=== PATIENT | female | born 2000 | race Two or more races ===

== ENCOUNTER 2022-10-27 07:00 | Inpatient (IN) | payer OTHER, SELFPAY ==
--- NOTE | ~2022-10-27 | MR_ITS ---
EXAMINATION: MR MRCP wo/w con/w 3D wo ind DATE: 10/29/2022 10:31 INDICATION: Cholecystitis. Elevated bilirubin. TECHNIQUE: Magnetic resonance imaging (MRI) of the abdomen was performed without and with 20 mL Multi eugenio intravenous contrast. Sequences included coronal T2-weighted SS-FSE, coronal T2-weighted FS SS- FSE, coronal T2-weighted FS FIESTA, axial T2-weighted FS FIESTA, axial T2-weighted FIESTA, sagittal T 2-weighted SS-FSE, axial T1-weighted dual-echo FSPGR, axial T2-weighted SS-FSE, axial T1-weighted LAV A, axial T2-weighted STIR FSE. Thick-slab T2-weighted FRFSE-XL images were obtained for magnetic reso nance cholangiopancreatography (MRCP). Rotating maximum intensity projection 3-D reconstructions of t he volumetric data were created by the technologist. Postcontrast sequences included a time course of axial T1-weighted LAVA. COMPARISON: CT and ultrasound dated 10/27/2022 FINDINGS: ABDOMEN MRI: Heart size is normal. No pericardial effusion. Trace bilateral pleural effusions. There is a single o void 2.1 cm gallstone at the junction of the body and neck of the gallbladder which does not appear d ilated. The previously seen gallbladder wall thickening appears to have resolved. There is no pericho lecystic fluid or edema/stranding in the pericholecystic fat to suggest acute cholecystitis. Liver, s pleen, pancreas, bilateral adrenal glands and kidneys are normal. Retroaortic left renal vein. Visual ized portions of bowels are unremarkable with no obstruction. No pathologically enlarged abdominal ly mphadenopathy. Visualized portion the dome of the bladder is unremarkable. Normal bone marrow signal throughout. ABDOMEN MRCP: No intra or extrahepatic biliary ductal dilation. The common bile duct measures up to 4 mm in maximal diameter which is within normal limits and tapers smoothly distally with no evident st rictures or choledocholithiasis. IMPRESSION: 1. Single large gallstone within the now otherwise normal-appearing gallbladder with resolution of th e previously seen mild gallbladder wall thickening. No intra or extrahepatic biliary ductal dilation or choledocholithiasis. Reviewed, dictated and finalized at location A. IMPRESSION: 1. Single large gallstone within the now otherwise normal-appearing gallbladder with resolution of the previously seen mild gallbladder wall thickening. No in tra or extrahepatic biliary ductal dilation or choledocholithiasis.
--- NOTE | ~2022-10-27 | CT_ITS ---
EXAMINATION: CT abdomen pelvis w con DATE: 10/27/2022 10:15 INDICATION: Epigastric abdominal pain. TECHNIQUE: Computed tomography (CT) of the abdomen and pelvis was performed with 100 mL Omnipaque 350 intravenous contrast. Automated exposure control and iterative reconstruction technique were employe d. The dose-length product was 1549.25 mGy-cm. COMPARISON: None. FINDINGS: The visualized portions of the lung bases demonstrate minimal atelectasis. No pleural effus ion. The heart size is normal. No pericardial effusion. The gallbladder is normal in size. There is a gallstone in the gallbladder neck. Gallbladder wall thickening is noted. The spleen, pancreas, adren al glands, and kidneys are normal. There are no dilated loops of bowel. The appendix is normal. There are no pathologically enlarged lymph nodes. There is no free intraperitoneal fluid. There is mild th oracic spondylosis. IMPRESSION: 1. Acute cholecystitis. Reviewed, dictated and finalized at location A. IMPRESSION: 1. Acute cholecystitis.
--- NOTE | ~2022-10-27 | US_ITS ---
EXAMINATION: US abdomen limited DATE: 10/27/2022 12:36 INDICATION: Right upper quadrant abdominal pain. TECHNIQUE: Multiple grayscale and Doppler ultrasound images of the abdomen were obtained. COMPARISON: CT abdomen and pelvis 10/27/2022 FINDINGS: The pancreas is obscured by bowel gas. The liver is normal without focal lesion. There is n ormal flow in main portal vein. The gallbladder is normal in size and contains a gallstone in the gal lbladder neck. Gallbladder wall thickening is noted. There is no sonographic Velez sign. The common duct is normal and measures 2 mm. IMPRESSION: 1. Gallstone in the gallbladder neck and gallbladder wall thickening suspicious for acute cholecystit is. Reviewed, dictated and finalized at location A. IMPRESSION: 1. Gallstone in the gallbladder neck and gallbladder wall thickening suspicious for acute cholecystitis.
[2022-10-27 07:03] VITALS: BP 132/66; PULSE 84; RESP 15; TEMP 36.3; O2SAT 100
[2022-10-27 07:33] LABS: Basophils Percent Auto 0.2 % (0.2-1.2); Eosinophils Percent Auto 0.4 % (0-4.4); Hematocrit 38.6 % (37.0-47.0); Hemoglobin 12.6 g/dL (12.0-15.0); Immature Granulocyte Absolute 0.05 K/mm3 (0.00-0.031); Immature Granulocyte Percent A 0.5 % (0-0.5); Lymphocytes Absolute Auto 2.39 K/mm3 (0.9-3.2); Lymphocytes Percent Auto 22.9 % (18.3-44.2); Mean Corpuscular HGB Conc 32.6 g/dl (32-36); Mean Corpuscular Hemoglobin 25.6 pg (26-34); Mean Corpuscular Volume 78.5 fl (80-100); Mean Platelet Volume 9.5 fl (7.4-10.4); Monocytes Absolute Auto 0.8 K/mm3 (0.1-0.6); Monocytes Percent Auto 7.9 % (2.6-8.5); Neutrophils Absolute Auto 7.1 K/mm3 (1.3-6.7); Neutrophils Percent Auto 68.1 % (45.5-73.1); Platelet Count Result 371 k/mm3 (150-375); Red Blood Count 4.92 M/mm3 (4.2-5.4); Red Cell Distribution Width 17.8 % (11.5-14.5); White Blood Count 10.4 K/mm3 (4.5-10.0)
--- NOTE | 2022-10-27 07:39 | ED.ABDPAIN ---
HPI - Abdominal Pain General Chief Complaint: Abdominal Pain Stated Complaint: abdominal/chest pain Time Seen by Provider: 10/27/22 07:23 History of Present Illness HPI narrative: This is a 22-year-old female, who denies significant past medical history, presenting to the emergency department complaining of abdominal pain beginning yesterday evening. The patient states last night she noted substernal chest pain, described as sharp and burning that migrated to the epigastric region. It is rated 7/10 and is persistent. She states is aggravated by motion, eating and direct pressure. She admits vomiting 3-4 times without blood and has some nausea. She states she has had a pain like this before but this is lasting longer than usual. Related Data Home Medications Medication Instructions Recorded Confirmed dextroamphetamine-amphetamine 30 30 mg PO DAILY 10/27/22 10/27/22 mg tablet (Adderall) escitalopram oxalate 10 mg tablet 5 mg PO DAILY 10/27/22 10/27/22 (Lexapro) norethindrone 1 mg-ethinyl 1 tablet PO DAILY 10/27/22 10/27/22 estradiol 20 mcg (21)-iron 75 mg (7) tablet (04/28 (28)) Allergies Allergy/AdvReac Type Severity Reaction Status Date / Time No Known Allergies Allergy Verified 10/27/22 15:03 Review of Systems Review of Systems: CONSTITUTIONAL: Denies fever, chills, or sweats. CARDIOVASCULAR: Denies chest pain, palpitations, or edema. RESPIRATORY: Denies cough or dyspnea. GASTROINTESTINAL: Epigastric abdominal pain, nausea and vomiting denies diarrhea. GENITOURINARY: Denies dysuria or hematuria. Last menstrual period approximately 3 weeks ago SKIN: Denies rash or itching. MUSCULOSKELETAL: Denies back pain, joint pain, or myalgia. NEUROLOGIC: Denies headache, numbness, dizziness, or weakness. PSYCHIATRIC: Denies anxiety or depression. [facility] Past Medical History Medical History (Updated 10/27/22 @ 16:38 by Josh Patel MD) ADHD Anxiety Depression Eczema History of transfusion As an . Surgical History Surgical History (Updated 10/27/22 @ 15:03 by Hayley Morrell) No significant past surgical history Family History Family History (System 10/27/22 @ 15:03 by Hayley Morrell) Grandparent Breast cancer Grandparent Myocardial infarction due to acute myocardial infarction Other Diabetes mellitus Autism Social History Social History (System 10/27/22 @ 15:03 by Hayley Morrell) Smoking status: Never smoker Second hand tobacco smoke exposure: Yes Alcohol intake: never Substance use: current Substance use type: marijuana Other substance usage details: substance use only when with boyfriend when using THC vape. Lack of Transportation: No Lack of Food: Never True Current Housing: I Have Housing Concerned About Future Housing: No Difficulty Paying Gas/Electric Bills: No Difficulty Paying for Meds: No Currently Unemployed: No Education: Trade/Vocational Certificate Difficulty w/ Childcare or Family Care: No Living arrangements: with family Occupation/Education: occupation Gender identity (if verbalized by the patient): Female Spiritual care concerns: No Agree to blood products: Yes Exam Narrative: GENERAL: Well-developed, well-nourished, and in no acute distress. HEAD: Normocephalic, atraumatic. EYES: PERRLA and EOMI. ENT: Nares clear, no rhinorrhea or epistaxis. Mucous membranes moist. Oropharynx without tonsillar hypertrophy exudate or other lesions. CHEST: Clear to auscultation. No respiratory distress. No wheezes rales or rhonchi HEART: Regular rate and rhythm. No murmur heard. Normal peripheral pulses. ABDOMEN: Soft, mildly tender in the epigastrium and right upper quadrant without guarding or rebound, nondistended, normal active bowel sounds. Mild right CVA tenderness to palpation, no left CVA tenderness EXTREMITIES: Normal range of motion. No edema. SKIN: Warm, dry, no rash. NEURO: No focal defic
[2022-10-27 07:43] LABS: Alanine Aminotransferase 56 U/L (6-35); Alkaline Phosphatase 89 U/L (38-126); Anion Gap 9 mmol/L (8-16); Aspartate Amino Transferase 53 U/L (14-36); Bilirubin,Total 1.4 mg/dL (0.2-1.3); Blood Urea Nitrogen 13 mg/dL (7-17); Calcium 9.5 mg/dL (8.4-10.2); Carbon Dioxide 24 mmol/L (22-30); Chloride 106 mmol/L (98-107); Estimated CRCL calculation 131 ml/min; Estimated Glomerular Filt Rate > 60; Glucose 106 mg/dL (65-110); Lipase 114 U/L (23-300); Potassium 3.9 mmol/L (3.4-5.0); Sodium 139 mmol/L (137-145)
[2022-10-27] MEDS: BELLADONNA ALK/PHENOB ELIX 10 ML, MAG HYDROX/ALUMINUM HYD/SIMETH 30 ML, LIDOCAINE HCL 2... PO (07:56)
[2022-10-27] MEDS: MORPHINE SULFATE (*CRX) 4 MG/ML INJ IV PUSH ×3 (07:56→15:55)
--- NOTE | 2022-10-27 07:56 | PC.NURSE ---
2 liters NS infusing. Morphine 4 mg given IVP for abd pain 08/16. Zofran 4 mg IVP given. GI cocktail given.
[2022-10-27] MEDS: ONDANSETRON INJ 4 MG/2 ML VIAL IV PUSH ×2 (08:08→15:55)
[2022-10-27] MEDS: SODIUM CHLORIDE 0.9% IV 2,000 ML 999 ML IV CONT (08:09)
[2022-10-27 09:22] LABS: Appearance Urine Clear (Clear); Bilirubin Urine Negative (Negative); Blood Urine Negative (Negative); Color Urine Yellow (Yellow); Glucose Urine UA Negative (Negative); Ketones Urine Negative (Negative); Leukocyte Esterase Ur Negative LEU/UL (Negative); Nitrate Urine Negative (Negative); Protein Urine Negative (Negative); Specific Grav Ur 1.011 (1.001-1.035); pH Urine 7.5 (5.0-9.0)
[2022-10-27 09:32] LABS: Add Urine Microscopic? NO
[2022-10-27 09:56] LABS: Beta HCG Quantitative < 2.39 mIU/ML
[2022-10-27 10:38] VITALS: BP 126/72; PULSE 84; RESP 16; O2SAT 100
--- NOTE | 2022-10-27 10:39 | PC.NURSE ---
Reports increasing pain to left upper abd. ERP aware.
[2022-10-27] MEDS: PIPERACILLN/TAZ 3.375GM/NS50ML 3.375 GM/50 ML BAG IVPB (11:10)
--- NOTE | 2022-10-27 12:25 | PM.IMHP ---
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 She presented to the emergency room this morning complaining of severe epigastric and right upper quadrant abdominal pain associated with nausea and vomiting. In the emergency room she was hemodynamically stable. White blood cell [place] [id number]. Liver enzymes were all normal except for slightly elevated total bilirubin 1.6. CT scan abdomen pelvis was performed showing inflammation of the gallbladder with at least 1 gallstone within the neck of the gallbladder. Patient states that she has been having some intermittent right upper quadrant abdominal pain over the past year which is made worse with eating. No other family members with history of gallbladder disease. She is being admitted to the hospital for antibiotics and bowel rest and likely cholecystectomy during this admission. Review of Systems Review of Systems: The remainder of the review of systems to include constitutional, HEENT, cardiovascular, respiratory, GI, , integumentary, musculoskeletal, endocrine, immunologic, hematologic, psychiatric, and neurologic are all negative except for which is mentioned above in the HPI. [facility] Past Medical History Medical History No significant past medical history Surgical History Surgical History No significant past surgical history Social History Social History Smoking status: Never smoker Alcohol intake: never Substance use: never Comments Patient's history of ADHD and depression both are well managed with current medications. Admits to occasional THC vaping, no IV drug use. 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 Meds Home Medications and Allergies Allergies Allergy/AdvReac Type Severity Reaction Status Date / Time No Known Allergies Allergy Mild Verified 10/27/22 07:10 Vital Signs Vital Signs - 24 hr 10/27/22 07:03 10/27/22 10:38 Temperature 36.3 C L Pulse Rate 84 84 Respiratory Rate 15 16 Blood Pressure 132/66 126/72 Pulse Oximetry 100 100 Oxygen Delivery Room Air Exam Const: General: comfortable and no acute distress Eyes: General: appearance normal, both eyes and all related structures Sclera: sclerae normal Pupils: Equal, round and reactive pupils present EOM: EOMs intact bilaterally Neck: Neck: supple and no JVD Resp: Effort & Inspection: normal respiratory effort Auscultation: clear to auscultation bilaterally Cardio: Rate: regular rate Rhythm: regular rhythm GI: Other: Abdomen is obese but soft. She has some mild tenderness the right upper quadrant the abdomen over the area of the gallbladder. Gallbladder is not palpable. No peritoneal signs noted no ventral hernias are noted. Skin: Wounds: no wounds Neuro: General: gait normal Speech: normal speech Motor exam (neuro): 5/5 motor strength present throughout Sensory Exam: normal sensation Extrem: General: normal to inspection Psych: Mental Status: mental status grossly normal Affect: normal affect H&P: Results Labs Labs: Short CBC 10/27/22 Range/Units 07:19 WBC 10.4 H (4.5-10.0) K/mm3 Hgb 12.6 (12.0-15.0) g/dL Hct 38.6 (37.0-47.0) % Plt Count 371 (150-375) k/mm3 BMP 10/27/22 07:19 Sodium 139 Potassium 3.9 Chloride 106 Carbon Dioxide 24 BUN 13 Creatinine 0.80 Glucose 106 Calcium 9.5 Liver Function 10/27/22 Range/Units 07:19 Total Bilirubin 1.4 H (0.2-1.3) mg/dL AST 53 H (14-36) U/L ALT 56 H (6-35) U/L Alkaline Phosphatase 89 (38-126) U/L Albumin 5.0 (3.5-5.1) g/dL Urine 10/27/22 Range/Units 09:13 Urine Color Yellow (Yellow) Uri
[2022-10-27] MEDS: PANTOPRAZOLE SODIUM IV 40 MG VIAL IV PUSH (12:48)
[2022-10-27 13:11] VITALS: BP 126/63; PULSE 67; RESP 18; TEMP 36.8; O2SAT 100
[2022-10-27 13:28] VITALS: BMI 45.6
--- NOTE | 2022-10-27 13:34 | ADMGEN ---
This patient, Pierre Powell, was admitted to [facility] Surg Room 311-01 at 1305. Patient/family oriented to hospital policies and general routines including ID bracelet, bed and alarms, visiting hours, pain management, procedures, bathroom and other care routines, personal items, smoking policy, room service/diet, and visiting hours. Information on how to activate the Rapid Response Team has been discussed. Patient/Family are encouraged to report perceived risks to care and to ask questions if they do not understand what they are told or what they should do.
--- NOTE | 2022-10-27 14:15 | PC.NURSE ---
Upon admission, patient scoring low risk for suicide ideation. Dr. Porras notified. Dr. Porras added the hospitalist onRadhika Cleveland made aware and will be around to see patient and will determine interventions. Will continue to monitor.
[2022-10-27 14:23] VITALS: BP 124/64; PULSE 55; RESP 16; TEMP 36.4; O2SAT 99
--- NOTE | 2022-10-27 14:59 | PCDIET ---
Brief nutrition note: Screen for MST 2, -2-13 lbs, + poor appetite. Pt has cholecystitis and has had intermittent abdominal pain and loss of appetite for several months. No weight records to compare. NPO for possible cholecystectomy either today or tomorrow. No needs at this time. Monitoring for diet advancement, additional needs.
--- NOTE | 2022-10-27 15:08 | WPDCN ---
Assessment and Plan Assessment and plan (1) Encounter for screening examination for other mental health and behavioral disorders: Code(s): Z13.39 - Encounter for screening examination for other mental health and behavioral disorders Status: Acute (2) Acute cholecystitis due to biliary calculus: Code(s): K80.00 - Calculus of gallbladder with acute cholecystitis without obstruction Status: Acute (3) Anxiety: Code(s): F41.9 - Anxiety disorder, unspecified Status: Acute (4) Depression: Code(s): F32.A - Depression, unspecified Status: Acute Plan The patient presented to the emergency department for evaluation of abdominal pain as detailed in HPI. Labs, imaging, EKG, and all reports were personally reviewed. She was found to have acute cholecystitis and has been started on Zosyn. She will be NPO after midnight for probable cholecystectomy tomorrow per Dr. Porras. During the admission process she answered yes to a screening tool used to evaluate suicide risk; more specifically she reported that she had in the past thought about suicide. She has struggled with depression and anxiety for several months and she has been seeing a psychologist and was started on antidepressants which have made a big difference. She is not currently suicidal, has not thought about suicide for several months, has no plans for suicide, and she has no history of suicide attempt. She is at low risk and in fact is doing much better than she was several months ago. I do not feel that crisis is evaluation is needed at this time. Continue escitalopram and outpatient therapy. Resume home medications when okay with primary service. Thank you for allowing us to participate in this patient's care. Please do not hesitate to contact us with any questions. [facility] Data of Consult Date/Time: 10/27/22 15:45 Requesting Physician: Sanjay Porras MD Consult Narrative Reason for consult: Low risk on [place] Suicide Severity Rating Scale screening. Narrative: This is a very pleasant 22-year-old female with history of depression, anxiety, and attention deficit hyperactivity disorder whom the hospitalist service has been consulted after she was found to have a low risk on a screening Powell Suicide Severity Rating Scale. The patient provides the following history. She had [employer] for dinner last night and was feeling just fine when she went to bed. She was awakened from sleep at about 02:00 with ?excruciating? pain in the upper abdomen radiating to the right upper quadrant and through to the back. Associated symptoms include nausea and multiple episodes of emesis as well as sweats. On occasion she does have similar abdominal discomfort but it is never been this severe and she has always attributed to her menstrual cycle. She denies fever, chest pain, shortness a breath, hematemesis, bloating, belching, melena, hematochezia, and diarrhea. CT scan showed findings of acute cholecystitis and she was started on Zosyn and admitted to the surgical service for cholecystectomy tomorrow. She is resting comfortably at the time of my evaluation and she reports that her pain is well controlled on the current regimen. She has not had any further episodes of nausea or vomiting. During the admission process a standard [place] suicide risk screening was performed and she mentioned that she had thought about suicide in the past. The admitting provider was notified of these results per protocol and the hospitalist service for our opinion. With further questioning she does admit that several months ago she had occasional thoughts of suicide though she never had a plan. She started seeing a psychologist 2 months ago and she was started on escitalopram which has helped her symptoms significantly. She is not actively suicidal, has no plans for suicide, and has no history of suicide attempt. Review of Systems Review of Systems: Twelve systems were reviewed and are negative
[2022-10-27] MEDS: LACTATED RINGERS 1,000 ML 125 ML IV CONT (15:56)
[2022-10-27 20:30] VITALS: PULSE 78; RESP 20; O2SAT 99
[2022-10-27 21:40] VITALS: BP 116/58; PULSE 78; RESP 20; TEMP 36.1; O2SAT 99
[2022-10-28] MEDS: LACTATED RINGERS 1,000 ML 125 ML IV CONT ×3 (01:26→15:16)
[2022-10-28 05:55] VITALS: BP 121/88; PULSE 102; RESP 20; TEMP 37; O2SAT 100
[2022-10-28 06:46] LABS: Basophils Percent Auto 0.3 % (0.2-1.2); Eosinophils Absolute Auto 0.1 K/mm3 (0-0.3); Eosinophils Percent Auto 1.4 % (0-4.4); Hematocrit 36.6 % (37.0-47.0); Hemoglobin 11.4 g/dL (12.0-15.0); Immature Granulocyte Absolute 0.02 K/mm3 (0.00-0.031); Immature Granulocyte Percent A 0.3 % (0-0.5); Lymphocytes Absolute Auto 2.13 K/mm3 (0.9-3.2); Lymphocytes Percent Auto 33.4 % (18.3-44.2); Mean Corpuscular HGB Conc 31.1 g/dl (32-36); Mean Corpuscular Hemoglobin 25.1 pg (26-34); Mean Corpuscular Volume 80.4 fl (80-100); Mean Platelet Volume 9.4 fl (7.4-10.4); Monocytes Absolute Auto 0.5 K/mm3 (0.1-0.6); Monocytes Percent Auto 7.8 % (2.6-8.5); Neutrophils Absolute Auto 3.6 K/mm3 (1.3-6.7); Neutrophils Percent Auto 56.8 % (45.5-73.1); Platelet Count Result 290 k/mm3 (150-375); Red Blood Count 4.55 M/mm3 (4.2-5.4); Red Cell Distribution Width 17.3 % (11.5-14.5); White Blood Count 6.4 K/mm3 (4.5-10.0)
[2022-10-28 07:04] LABS: Alanine Aminotransferase 65 U/L (6-35); Alkaline Phosphatase 77 U/L (38-126); Anion Gap 7 mmol/L (8-16); Aspartate Amino Transferase 54 U/L (14-36); Bilirubin,Total 1.7 mg/dL (0.2-1.3); Blood Urea Nitrogen 6 mg/dL (7-17); Calcium 8.6 mg/dL (8.4-10.2); Carbon Dioxide 26 mmol/L (22-30); Chloride 104 mmol/L (98-107); Estimated CRCL calculation 134 ml/min; Estimated Glomerular Filt Rate > 60; Glucose 83 mg/dL (65-110); Potassium 3.7 mmol/L (3.4-5.0); Sodium 137 mmol/L (137-145)
[2022-10-28 08:26] VITALS: O2SAT 94
[2022-10-28] MEDS: PANTOPRAZOLE SODIUM IV 40 MG VIAL IV PUSH (08:40)
[2022-10-28] MEDS: MORPHINE SULFATE (*CRX) 4 MG/ML INJ IV PUSH ×3 (08:59→21:22)
--- NOTE | 2022-10-28 13:15 | PM.PNGS ---
Progress Note: A&P Assessment and Plan (1) Acute cholecystitis due to biliary calculus: Code(s): K80.00 - Calculus of gallbladder with acute cholecystitis without obstruction Status: Acute Assessment and Plan: Patient seemed to be improved this morning but after a trial of clear liquids she was having more symptoms of pain and nausea and so I have made her NPO again. We will repeat labs in the morning and if she is still contained have significant pain then consider getting with urgent laparoscopic cholecystectomy possible open cholecystectomy tomorrow. Continue IV antibiotics and bowel rest. Subjective Subjective Date/Time Seen: 10/28/22 13:15 Interval history: Patient was feeling better this morning we had started some clear liquids but unfortunately she started having some increasing right upper quadrant pain and some nausea after starting the clear liquids. She has been now been placed back on NPO status. Her white blood cell count did decrease from 10,400 to 6000. She remains afebrile. Total bilirubin increased from 1.4 to 1.7. Remaining liver enzymes are slightly elevated but stable. Abdominal ultrasound revealed normal common bile duct with no evidence of choledocholithiasis but thickening of the gallbladder wall suggestive of acute cholecystitis and gallstone lodged within the neck of the gallbladder. Review of Systems Review of Systems: The remainder of the review of systems to include constitutional, HEENT, cardiovascular, respiratory, GI, , integumentary, musculoskeletal, endocrine, immunologic, hematologic, psychiatric, and neurologic are all negative except for which is mentioned above in the HPI. Exam Const: General: comfortable and no acute distress Eyes: Sclera: sclerae normal Neck: Neck: supple and no JVD Resp: Effort & Inspection: normal respiratory effort Auscultation: clear to auscultation bilaterally Cardio: Rate: regular rate Rhythm: regular rhythm GI: Other: Soft and nondistended. Mild tenderness to deep palpation right upper quadrant. No peritoneal signs. No palpable gallbladder. Neuro: Speech: normal speech Sensory Exam: normal sensation Extrem: General: normal to inspection Psych: Mental Status: mental status grossly normal Affect: normal affect Objective Data Vital Signs Vital Signs: Vital Signs - 24 hr 10/27/22 14:23 10/27/22 21:40 10/27/22 20:30 Temperature 36.4 C 36.1 C L Pulse Rate 55 L 78 78 Respiratory Rate 16 20 20 Blood Pressure 124/64 116/58 L Pulse Oximetry 99 99 99 Oxygen Delivery Room Air 10/28/22 05:55 10/28/22 09:05 10/28/22 08:26 Temperature 37.0 C Pulse Rate 102 H Respiratory Rate 20 Blood Pressure 121/88 Pulse Oximetry 100 94 Oxygen Delivery Room Air Room Air Intake/Output Intake/Output: Intake & Output 10/25/22 10/26/22 10/27/22 10/28/22 23:59 23:59 23:59 23:59 Intake Total 3050 1240 Output Total 200 800 Balance 2850 440 Meds/Results Medications: Active Medications Generic Name Dose Route Start Last Admin Trade Name Freq PRN Reason Stop Dose Admin Lactated Ringer's 1,000 mls @ 125 mls/hr 10/27/22 11:55 10/28/22 08:41 Lr - Lactated Ringers Iv IV CONT 125 mls/hr .Q8H BRANDT Administration Morphine Sulfate 4 mg 10/27/22 11:53 10/28/22 08:59 Morphine Sulfate (*Crx) 4 Mg/Ml Inj IV PUSH 4 mg Q2H PRN Administration Pain Rated 7-10 Ondansetron HCl 4 mg 10/27/22 11:53 10/27/22 15:55 Ondansetron Inj 4 Mg/2 Ml Vial IV PUSH 4 mg Q4H PRN Administration Nausea Pantoprazole Sodium 40 mg 10/27/22 12:35 10/28/22 08:40 Pantoprazole Sodium Iv 40 Mg Vial IV PUSH 40 mg DAILY BRANDT Administration Radiology Results: ITS Impressions Abdomen/Pelvis CT 10/27/22 10:22 IMPRESSION: 1. Acute cholecystitis. Abdomen Ultrasound 10/27/22 12:38 IMPRESSION: 1. Gallstone in the gallbladder neck and gallbladder wall thickening susp
--- NOTE | 2022-10-28 13:40 | PM.IMPN ---
Progress Note: A&P Assessment and Plan (1) Acute cholecystitis due to biliary calculus: Code(s): K80.00 - Calculus of gallbladder with acute cholecystitis without obstruction Status: Acute Assessment and Plan: The patient presented to the emergency department for evaluation of abdominal pain as detailed in HPI. Labs, imaging, EKG, and all reports were personally reviewed. She was found to have acute cholecystitis and has been started on Zosyn. She will be NPO after midnight for probable cholecystectomy per Dr. Porras. (2) Depression: Code(s): F32.A - Depression, unspecified Status: Acute Assessment and Plan: During the admission process she answered yes to a screening tool used to evaluate suicide risk; more specifically she reported that she had in the past thought about suicide. She has struggled with depression and anxiety for several months and she has been seeing a psychologist and was started on antidepressants which have made a big difference. She is not currently suicidal, has not thought about suicide for several months, has no plans for suicide, and she has no history of suicide attempt. She is at low risk and in fact is doing much better than she was several months ago. I do not feel that crisis is evaluation is needed at this time. Continue escitalopram and outpatient therapy. Resume home medications when okay with primary service. (3) Anxiety: Code(s): F41.9 - Anxiety disorder, unspecified Status: Acute Assessment and Plan: See above (4) Encounter for screening examination for other mental health and behavioral disorders: Code(s): Z13.39 - Encounter for screening examination for other mental health and behavioral disorders Status: Acute Assessment and Plan: see above Plan Thank you for allowing us to participate in this patient's care. Please do not hesitate to contact us with any questions. Subjective Date/time seen: 10/28/22 13:40 Interval history: patient doing well in bed. She continues to have abdominal pain And nausea. Pain was worsened with liquids. Per General surgery note she will undergo possible open cholecystectomy tomorrow. Review of Systems Review of Systems: All systems reviewed & are unremarkable except as noted in HPI and below Exam Narrative: GENERAL: Comfortable, no acute distress, obese HENMT: moist mucous membranes EYES: EOM intact b/l NECK: no lymphadenopathy RESPIRATORY: clear to auscultation CARDIO: RRR GI: soft, right upper quadrant tenderness, bowel sounds present SKIN: no rashes EXTREMITIES: no edema, redness or tenderness Objective Data Vital Signs Vital Signs: Vital Signs - 24 hr 10/27/22 14:23 10/27/22 21:40 10/27/22 20:30 Temperature 97.6 F 97 F L Pulse Rate 55 L 78 78 Respiratory Rate 16 20 20 Blood Pressure 124/64 116/58 L Pulse Oximetry 99 99 99 Oxygen Delivery Room Air 10/28/22 05:55 10/28/22 09:05 10/28/22 08:26 Temperature 98.6 F Pulse Rate 102 H Respiratory Rate 20 Blood Pressure 121/88 Pulse Oximetry 100 94 Oxygen Delivery Room Air Room Air Intake/Output Intake/Output: Intake & Output 10/25/22 10/26/22 10/27/22 10/28/22 23:59 23:59 23:59 23:59 Intake Total 3050 1240 Output Total 200 800 Balance 2850 440 Meds/Results Medications: Active Medications Generic Name Dose Route Start Last Admin Trade Name Freq PRN Reason Stop Dose Admin Lactated Ringer's 1,000 mls @ 125 mls/hr 10/27/22 11:55 10/28/22 08:41 Lr - Lactated Ringers Iv IV CONT 125 mls/hr .Q8H BRANDT Administration Morphine Sulfate 4 mg 10/27/22 11:53 10/28/22 08:59 Morphine Sulfate (*Crx) 4 Mg/Ml Inj IV PUSH 4 mg Q2H PRN Administration Pain Rated 7-10 Ondansetron HCl 4 mg 10/27/22 11:53 10/27/22 15:55 Ondansetron Inj 4 Mg/2 Ml Vial IV PUSH 4 mg Q4H PRN Administration Nausea Pantoprazole Sodium 40 mg 10/27/22 12:35
[2022-10-28 14:00] VITALS: BP 127/53; PULSE 73; RESP 14; TEMP 36.8; O2SAT 100
[2022-10-28 20:20] VITALS: PULSE 54; RESP 14; O2SAT 100
[2022-10-28] MEDS: ONDANSETRON INJ 4 MG/2 ML VIAL IV PUSH (21:22)
[2022-10-28 21:31] VITALS: O2SAT 93
[2022-10-28 22:00] VITALS: BP 118/50; PULSE 54; RESP 14; TEMP 36.6; O2SAT 100
[2022-10-29 06:00] VITALS: BP 111/52; PULSE 71; RESP 14; TEMP 36.6; O2SAT 98
[2022-10-29] MEDS: ONDANSETRON INJ 4 MG/2 ML VIAL IV PUSH ×3 (06:49→20:20)
[2022-10-29] MEDS: MORPHINE SULFATE (*CRX) 4 MG/ML INJ IV PUSH ×4 (06:49→20:17)
[2022-10-29 07:15] LABS: Alanine Aminotransferase 70 U/L (6-35); Albumin Level 4.1 g/dL (3.5-5.1); Alkaline Phosphatase 76 U/L (38-126); Anion Gap 10 mmol/L (8-16); Aspartate Amino Transferase 53 U/L (14-36); Bilirubin,Total 1.9 mg/dL (0.2-1.3); Blood Urea Nitrogen 5 mg/dL (7-17); Calcium 8.8 mg/dL (8.4-10.2); Carbon Dioxide 22 mmol/L (22-30); Chloride 104 mmol/L (98-107); Estimated CRCL calculation 151 ml/min; Estimated Glomerular Filt Rate > 60; Glucose 76 mg/dL (65-110); Potassium 3.6 mmol/L (3.4-5.0); Sodium 136 mmol/L (137-145)
[2022-10-29 07:16] LABS: Basophils Percent Auto 0.2 % (0.2-1.2); Eosinophils Absolute Auto 0.1 K/mm3 (0-0.3); Eosinophils Percent Auto 1.3 % (0-4.4); Hematocrit 37.5 % (37.0-47.0); Hemoglobin 11.7 g/dL (12.0-15.0); Immature Granulocyte Absolute 0.02 K/mm3 (0.00-0.031); Immature Granulocyte Percent A 0.3 % (0-0.5); Lymphocytes Absolute Auto 2.13 K/mm3 (0.9-3.2); Lymphocytes Percent Auto 35.9 % (18.3-44.2); Mean Corpuscular HGB Conc 31.2 g/dl (32-36); Mean Corpuscular Hemoglobin 25.5 pg (26-34); Mean Corpuscular Volume 81.7 fl (80-100); Monocytes Absolute Auto 0.4 K/mm3 (0.1-0.6); Monocytes Percent Auto 6.6 % (2.6-8.5); Neutrophils Absolute Auto 3.3 K/mm3 (1.3-6.7); Neutrophils Percent Auto 55.7 % (45.5-73.1); Platelet Count Result 280 k/mm3 (150-375); Red Blood Count 4.59 M/mm3 (4.2-5.4); Red Cell Distribution Width 17.2 % (11.5-14.5); White Blood Count 5.9 K/mm3 (4.5-10.0)
[2022-10-29] MEDS: PANTOPRAZOLE SODIUM IV 40 MG VIAL IV PUSH (07:55)
[2022-10-29 08:00] VITALS: O2SAT 98
--- NOTE | 2022-10-29 08:50 | PM.PNGS ---
Progress Note: A&P Assessment and Plan (1) Acute cholecystitis: Code(s): K81.0 - Acute cholecystitis Status: Acute Assessment and Plan: Pain is improved but her bilirubin has increased to 1.9. Will get an MRCP today to evaluate the bile ducts to make sure there is no choledocholithiasis. This could be due to inflammation from the cholecystitis but there is any evidence of common bile duct stones. We will still plan on likely be laparoscopic cholecystectomy for discharge. Continue NPO today if she is nauseated but after the MRCP if she feels okay she might be to start some liquids. Continue IV antibiotics supportive management. White blood cell count is normal she is afebrile. Subjective Subjective Date/Time Seen: 10/29/22 08:50 Interval history: Patient's right upper quadrant pain is still present but not as severe. She still has some occasional nausea is getting some Zofran. No fever. Able to get up and ambulate to the bathroom. White blood cell count is still normal. Total bilirubin has increased slightly to 1.9 from 1.7. Remaining liver enzymes are stable with slightly elevated. Exam Const: General: comfortable and no acute distress Resp: Effort & Inspection: normal respiratory effort Auscultation: clear to auscultation bilaterally Cardio: Rate: regular rate Rhythm: regular rhythm GI: Other: Soft and nondistended. Mild tenderness to palpation epigastric and right upper quadrant regions of the abdomen. Gallbladder is not palpable. No peritoneal signs or guarding. Neuro: General: gait normal Speech: normal speech Sensory Exam: normal sensation Extrem: General: normal to inspection Psych: Mental Status: mental status grossly normal Affect: normal affect Objective Data Vital Signs Vital Signs: Vital Signs - 24 hr 10/28/22 09:05 10/28/22 14:00 10/28/22 21:31 Temperature 36.8 C Pulse Rate 73 Respiratory Rate 14 Blood Pressure 127/53 L Pulse Oximetry 100 93 Oxygen Delivery Room Air Room Air 10/28/22 22:00 10/28/22 20:20 10/29/22 06:00 Temperature 36.6 C 36.6 C Pulse Rate 54 L 54 L 71 Respiratory Rate 14 14 14 Blood Pressure 118/50 L 111/52 L Pulse Oximetry 100 100 98 Oxygen Delivery Room Air 10/29/22 08:00 Temperature Pulse Rate Respiratory Rate Blood Pressure Pulse Oximetry 98 Oxygen Delivery Room Air Intake/Output Intake/Output: Intake & Output 10/26/22 10/27/22 10/28/22 10/29/22 23:59 23:59 23:59 23:59 Intake Total 3050 2360 Output Total 200 1600 1000 Balance 2850 760 -1000 Meds/Results Medications: Active Medications Generic Name Dose Route Start Last Admin Trade Name Freq PRN Reason Stop Dose Admin Lactated Ringer's 1,000 mls @ 125 mls/hr 10/27/22 11:55 10/28/22 15:16 Lr - Lactated Ringers Iv IV CONT 125 mls/hr .Q8H BRANDT Administration Piperacillin/Tazobactam/Dextrose 3.375 gm in 50 mls @ 100 mls/hr 10/29/22 07:50 Zosyn 3.375 Gm/Ns 50 Ml IVPB Q6HR BRANDT Morphine Sulfate 4 mg 10/27/22 11:53 10/29/22 06:49 Morphine Sulfate (*Crx) 4 Mg/Ml Inj IV PUSH 4 mg Q2H PRN Administration Pain Rated 7-10 Ondansetron HCl 4 mg 10/27/22 11:53 10/29/22 06:49 Ondansetron Inj 4 Mg/2 Ml Vial IV PUSH 4 mg Q4H PRN Administration Nausea Pantoprazole Sodium 40 mg 10/27/22 12:35 10/29/22 07:55 Pantoprazole Sodium Iv 40 Mg Vial IV PUSH 40 mg DAILY BRANDT Administration Radiology Results: ITS Impressions Abdomen/Pelvis CT 10/27/22 10:22 IMPRESSION: 1. Acute cholecystitis. Abdomen Ultrasound 10/27/22 12:38 IMPRESSION: 1. Gallstone in the gallbladder neck and gallbladder wall thickening suspicious for acute cholecystitis. Labs Labs: Laboratory Results - last 24 hr 10/29/22 06:36 WBC 5.9 RBC 4.59 Hgb 11.7 L Hct 37.5 MCV 81.7 MCH 25.5 L MCHC 31.2 L RDW 17.2 H Plt Count 280 MPV 10.0 Immature Gran % (Auto) 0.3 Neut % (Au
[2022-10-29] MEDS: PIPERACILLN/TAZ 3.375GM/NS50ML 3.375 GM/50 ML BAG IVPB ×2 (10:40→16:15)
[2022-10-29] MEDS: LACTATED RINGERS 1,000 ML 125 ML IV CONT ×2 (10:43→18:06)
--- NOTE | 2022-10-29 11:31 | PM.IMPN ---
Progress Note: A&P Assessment and Plan (1) Acute cholecystitis due to biliary calculus: Code(s): K80.00 - Calculus of gallbladder with acute cholecystitis without obstruction Status: Acute Assessment and Plan: The patient presented to the emergency department for evaluation of abdominal pain as detailed in HPI. Labs, imaging, EKG, and all reports were personally reviewed. She was found to have acute cholecystitis and has been started on Zosyn. She will be NPO after midnight for probable cholecystectomy per Dr. Porras. (2) Depression: Code(s): F32.A - Depression, unspecified Status: Acute Assessment and Plan: During the admission process she answered yes to a screening tool used to evaluate suicide risk; more specifically she reported that she had in the past thought about suicide. She has struggled with depression and anxiety for several months and she has been seeing a psychologist and was started on antidepressants which have made a big difference. She is not currently suicidal, has not thought about suicide for several months, has no plans for suicide, and she has no history of suicide attempt. She is at low risk and in fact is doing much better than she was several months ago. I do not feel that crisis is evaluation is needed at this time. Continue escitalopram and outpatient therapy. Resume home medications when okay with primary service. (3) Anxiety: Code(s): F41.9 - Anxiety disorder, unspecified Status: Acute Assessment and Plan: See above (4) Encounter for screening examination for other mental health and behavioral disorders: Code(s): Z13.39 - Encounter for screening examination for other mental health and behavioral disorders Status: Acute Assessment and Plan: see above Plan Thank you for allowing us to participate in this patient's care. Please do not hesitate to contact us with any questions. Subjective Date/time seen: 10/29/22 11:31 Interval history: Patient doing well at this time. She is undergoing MRCP today. No new complaints at this time. Review of Systems Review of Systems: All systems reviewed & are unremarkable except as noted in HPI and below Exam Narrative: GENERAL: Comfortable, no acute distress, obese HENMT: moist mucous membranes EYES: EOM intact b/l NECK: no lymphadenopathy RESPIRATORY: clear to auscultation CARDIO: RRR GI: soft, right upper quadrant tenderness, bowel sounds present SKIN: no rashes EXTREMITIES: no edema, redness or tenderness Objective Data Vital Signs Vital Signs: Vital Signs - 24 hr 10/28/22 14:00 10/28/22 21:31 10/28/22 22:00 Temperature 98.2 F 97.9 F Pulse Rate 73 54 L Respiratory Rate 14 14 Blood Pressure 127/53 L 118/50 L Pulse Oximetry 100 93 100 Oxygen Delivery Room Air 10/28/22 20:20 10/29/22 06:00 10/29/22 08:00 Temperature 97.8 F Pulse Rate 54 L 71 Respiratory Rate 14 14 Blood Pressure 111/52 L Pulse Oximetry 100 98 98 Oxygen Delivery Room Air Room Air Intake/Output Intake/Output: Intake & Output 10/26/22 10/27/22 10/28/22 10/29/22 23:59 23:59 23:59 23:59 Intake Total 3050 3360 50 Output Total 200 1600 2600 Balance 2850 1760 -2550 Meds/Results Medications: Active Medications Generic Name Dose Route Start Last Admin Trade Name Freq PRN Reason Stop Dose Admin Lactated Ringer's 1,000 mls @ 125 mls/hr 10/27/22 11:55 10/29/22 10:43 Lr - Lactated Ringers Iv IV CONT 125 mls/hr .Q8H BRANDT Administration Piperacillin/Tazobactam/Dextrose 3.375 gm in 50 mls @ 100 mls/hr 10/29/22 07:50 10/29/22 11:26 Zosyn 3.375 Gm/Ns 50 Ml IVPB Infused Q6HR BRANDT Infusion Morphine Sulfate 4 mg 10/27/22 11:53 10/29/22 10:45 Morphine Sulfate (*Crx) 4 Mg/Ml Inj IV PUSH 4 mg Q2H PRN Administration Pain Rated 7-10 Ondansetron HCl 4 mg 10/27/22 11:53 10/29/22 10:45 Ondansetron Inj 4 Mg/2 Ml Vial IV PUSH 4 mg
[2022-10-29 14:00] VITALS: BP 126/65; PULSE 59; RESP 14; TEMP 36.8; O2SAT 100
[2022-10-29 21:42] VITALS: BP 131/73; PULSE 66; RESP 15; TEMP 36.2; O2SAT 100
[2022-10-30] VITALS (12 sets, daily range): BP systolic 108–149; BP diastolic 56–97; PULSE 54–673; RESP 12–20; TEMP 35.8–36.9; O2SAT 96–100; BMI 45.6
[2022-10-30] MEDS: LACTATED RINGERS 1,000 ML 125 ML IV CONT ×2 (02:20→10:06)
[2022-10-30] MEDS: PIPERACILLN/TAZ 3.375GM/NS50ML 3.375 GM/50 ML BAG IVPB ×3 (02:25→12:45)
[2022-10-30] MEDS: MORPHINE SULFATE (*CRX) 4 MG/ML INJ IV PUSH ×2 (07:21→20:53)
[2022-10-30] MEDS: PANTOPRAZOLE SODIUM IV 40 MG VIAL IV PUSH (07:22)
--- NOTE | 2022-10-30 08:04 | PM.PNGS ---
Progress Note: A&P Assessment and Plan (1) Acute cholecystitis: Code(s): K81.0 - Acute cholecystitis Status: Acute Assessment and Plan: Still having pain. Labs are pending this morning. MRCP results are pending as well. Will follow-up on results and make a decision for possible surgery later today for those results have been reviewed. Remains stable at this time he continues to have right upper quadrant pain. Continue IV antibiotics. Subjective Subjective Date/Time Seen: 10/30/22 08:04 Interval history: Patient is still having right upper quadrant pain today. Recently got some pain medicine. Stated she was pretty nauseated yesterday. She did have MRCP done yesterday but reading is pending at this time. She has been afebrile. Remains on IV antibiotics and NPO. Cbc and CMP are pending this morning as well. Exam GI: Other: Abdomen is soft and nondistended. Mild tenderness to palpation right upper quadrant. No guarding or generalized peritonitis. Objective Data Vital Signs Vital Signs: Vital Signs - 24 hr 10/29/22 14:00 10/29/22 21:42 10/30/22 04:55 Temperature 36.8 C 36.2 C L 35.8 C L Pulse Rate 59 L 66 54 L Respiratory Rate 14 15 16 Blood Pressure 126/65 131/73 108/56 L Pulse Oximetry 100 100 98 Intake/Output Intake/Output: Intake & Output 10/27/22 10/28/22 10/29/22 10/30/22 23:59 23:59 23:59 23:59 Intake Total 3050 3360 1100 1100 Output Total 200 1600 2600 1000 Balance 2850 1760 -1500 100 Meds/Results Medications: Active Medications Generic Name Dose Route Start Last Admin Trade Name Freq PRN Reason Stop Dose Admin Lactated Ringer's 1,000 mls @ 125 mls/hr 10/27/22 11:55 10/30/22 04:33 Lr - Lactated Ringers Iv IV CONT Not Given .Q8H BRANDT Piperacillin/Tazobactam/Dextrose 3.375 gm in 50 mls @ 100 mls/hr 10/29/22 17:00 10/30/22 07:17 Zosyn 3.375 Gm/Ns 50 Ml IVPB Infused Q6HR BRANDT Infusion Morphine Sulfate 4 mg 10/27/22 11:53 10/30/22 07:21 Morphine Sulfate (*Crx) 4 Mg/Ml Inj IV PUSH 4 mg Q2H PRN Administration Pain Rated 7-10 Ondansetron HCl 4 mg 10/27/22 11:53 10/29/22 20:20 Ondansetron Inj 4 Mg/2 Ml Vial IV PUSH 4 mg Q4H PRN Administration Nausea Pantoprazole Sodium 40 mg 10/27/22 12:35 10/30/22 07:22 Pantoprazole Sodium Iv 40 Mg Vial IV PUSH 40 mg DAILY BRANDT Administration Radiology Results: ITS Impressions Abdomen/Pelvis CT 10/27/22 10:22 IMPRESSION: 1. Acute cholecystitis. Abdomen Ultrasound 10/27/22 12:38 IMPRESSION: 1. Gallstone in the gallbladder neck and gallbladder wall thickening suspicious for acute cholecystitis.
[2022-10-30 08:29] LABS: Basophils Percent Auto 0.1 % (0.2-1.2); Eosinophils Absolute Auto 0.1 K/mm3 (0-0.3); Hematocrit 37.1 % (37.0-47.0); Hemoglobin 11.9 g/dL (12.0-15.0); Immature Granulocyte Absolute 0.02 K/mm3 (0.00-0.031); Immature Granulocyte Percent A 0.3 % (0-0.5); Lymphocytes Absolute Auto 1.54 K/mm3 (0.9-3.2); Lymphocytes Percent Auto 22.4 % (18.3-44.2); Mean Corpuscular HGB Conc 32.1 g/dl (32-36); Mean Corpuscular Hemoglobin 25.2 pg (26-34); Mean Corpuscular Volume 78.4 fl (80-100); Mean Platelet Volume 10.1 fl (7.4-10.4); Monocytes Absolute Auto 0.4 K/mm3 (0.1-0.6); Monocytes Percent Auto 5.7 % (2.6-8.5); Neutrophils Absolute Auto 4.9 K/mm3 (1.3-6.7); Neutrophils Percent Auto 70.5 % (45.5-73.1); Platelet Count Result 296 k/mm3 (150-375); Red Blood Count 4.73 M/mm3 (4.2-5.4); Red Cell Distribution Width 16.7 % (11.5-14.5); White Blood Count 6.9 K/mm3 (4.5-10.0)
[2022-10-30 08:37] LABS: Alanine Aminotransferase 70 U/L (6-35); Albumin Level 4.5 g/dL (3.5-5.1); Alkaline Phosphatase 91 U/L (38-126); Anion Gap 9 mmol/L (8-16); Aspartate Amino Transferase 55 U/L (14-36); Blood Urea Nitrogen 7 mg/dL (7-17); Calcium 9.1 mg/dL (8.4-10.2); Carbon Dioxide 26 mmol/L (22-30); Chloride 101 mmol/L (98-107); Estimated CRCL calculation 120 ml/min; Estimated Glomerular Filt Rate > 60; Glucose 68 mg/dL (65-110); Potassium 3.7 mmol/L (3.4-5.0); Sodium 136 mmol/L (137-145)
--- NOTE | 2022-10-30 10:18 | WPDHPUPDATE1 ---
History and Physical Update Update Date/Time: 10/30/22 10:18 History and Physical has been reviewed, including an updated exam of the patient. There are NO changes in the patient's condition. Risks, benefits, and alternatives have been discussed and questions answered. Patient agrees to proceed with procedure.
--- NOTE | 2022-10-30 11:34 | PM.IMPN ---
Progress Note: A&P Assessment and Plan (1) Acute cholecystitis due to biliary calculus: Code(s): K80.00 - Calculus of gallbladder with acute cholecystitis without obstruction Status: Acute Assessment and Plan: The patient presented to the emergency department for evaluation of abdominal pain as detailed in HPI. Labs, imaging, EKG, and all reports were personally reviewed. She was found to have acute cholecystitis and has been started on Zosyn. Cholecystectomy today per Dr. Porras. (2) Depression: Code(s): F32.A - Depression, unspecified Status: Acute Assessment and Plan: During the admission process she answered yes to a screening tool used to evaluate suicide risk; more specifically she reported that she had in the past thought about suicide. She has struggled with depression and anxiety for several months and she has been seeing a psychologist and was started on antidepressants which have made a big difference. She is not currently suicidal, has not thought about suicide for several months, has no plans for suicide, and she has no history of suicide attempt. She is at low risk and in fact is doing much better than she was several months ago. I do not feel that crisis is evaluation is needed at this time. Continue escitalopram and outpatient therapy. Resume home medications when okay with primary service. (3) Anxiety: Code(s): F41.9 - Anxiety disorder, unspecified Status: Acute Assessment and Plan: See above (4) Encounter for screening examination for other mental health and behavioral disorders: Code(s): Z13.39 - Encounter for screening examination for other mental health and behavioral disorders Status: Acute Assessment and Plan: see above Plan Thank you for allowing us to participate in this patient's care. Please do not hesitate to contact us with any questions. Subjective Date/time seen: 10/30/22 11:34 Interval history: Patient's abdominal pain continues. Plan for surgery later today. Review of Systems Review of Systems: All systems reviewed & are unremarkable except as noted in HPI and below Exam Narrative: GENERAL: Comfortable, no acute distress, obese HENMT: moist mucous membranes EYES: EOM intact b/l NECK: no lymphadenopathy RESPIRATORY: clear to auscultation CARDIO: RRR GI: soft, right upper quadrant tenderness, bowel sounds present SKIN: no rashes EXTREMITIES: no edema, redness or tenderness Objective Data Vital Signs Vital Signs: Vital Signs - 24 hr 10/29/22 14:00 10/29/22 21:42 10/30/22 04:55 Temperature 98.3 F 97.1 F L 96.5 F L Pulse Rate 59 L 66 54 L Respiratory Rate 14 15 16 Blood Pressure 126/65 131/73 108/56 L Pulse Oximetry 100 100 98 Oxygen Delivery 10/30/22 08:00 Temperature Pulse Rate Respiratory Rate Blood Pressure Pulse Oximetry Oxygen Delivery Room Air Intake/Output Intake/Output: Intake & Output 10/27/22 10/28/22 10/29/22 10/30/22 23:59 23:59 23:59 23:59 Intake Total 3050 3360 1100 2100 Output Total 200 1600 2600 1000 Balance 2850 1760 -1500 1100 Meds/Results Medications: Active Medications Generic Name Dose Route Start Last Admin Trade Name Freq PRN Reason Stop Dose Admin Lactated Ringer's 1,000 mls @ 125 mls/hr 10/27/22 11:55 10/30/22 10:06 Lr - Lactated Ringers Iv IV CONT 125 mls/hr .Q8H BRANDT Administration Piperacillin/Tazobactam/Dextrose 3.375 gm in 50 mls @ 100 mls/hr 10/29/22 17:00 10/30/22 07:17 Zosyn 3.375 Gm/Ns 50 Ml IVPB Infused Q6HR BRANDT Infusion Morphine Sulfate 4 mg 10/27/22 11:53 10/30/22 07:21 Morphine Sulfate (*Crx) 4 Mg/Ml Inj IV PUSH 4 mg Q2H PRN Administration Pain Rated 7-10 Ondansetron HCl 4 mg 10/27/22 11:53 10/29/22 20:20 Ondansetron Inj 4 Mg/2 Ml Vial IV PUSH 4 mg Q4H PRN Administration Nausea Pantoprazole Sodium 40 mg 10/27/22 12:35 10/30/22 07:22 Pantoprazole Sodium
--- NOTE | 2022-10-30 15:04 | WPDANESEPPF ---
Anes - Initial Pre Proc Eval Procedure: Operation Date: 10/30/22 15:30 Proposed Procedures p Laparoscopic Cholecystectomy,Possible Open - Sanjay Porras MD Date/Time: 10/30/22 15:04 Surgeon: Sanjay Porras MD Pre Op Diagnosis: Acute Cholecystitis Patient Data Age: 22 Gender: F Height: 1.68 m Weight: 128.2 kg Last Vital Signs Temp 36.9 C 10/30/22 14:10 Pulse 673 H 10/30/22 14:10 Resp 16 10/30/22 14:10 BP 149/97 H 10/30/22 14:10 Pulse Ox 100 10/30/22 14:10 O2 Del Method Room Air 10/30/22 14:10 Allergies Allergy/AdvReac Type Severity Reaction Status Date / Time No Known Allergies Allergy Verified 10/27/22 15:03 Home Medications Medication Instructions Recorded Confirmed Type dextroamphetamine-amphetamine 30 30 mg PO DAILY #30 tabs 10/17/22 10/17/22 Rx mg tablet escitalopram oxalate 10 mg tablet 10 mg PO DAILY #30 tabs 10/17/22 10/17/22 Rx norethindrone 1 mg-ethinyl 1 tablet PO DAILY #84 tabs 10/17/22 10/17/22 Rx estradiol 20 mcg (21)-iron 75 mg (7) tablet dextroamphetamine-amphetamine 30 30 mg PO DAILY #30 tabs 10/19/22 Rx mg tablet (Adderall) dextroamphetamine-amphetamine 30 30 mg PO DAILY 10/27/22 10/27/22 History mg tablet (Adderall) escitalopram oxalate 10 mg tablet 5 mg PO DAILY 10/27/22 10/27/22 History (Lexapro) norethindrone 1 mg-ethinyl 1 tablet PO DAILY 10/27/22 10/27/22 History estradiol 20 mcg (21)-iron 75 mg (7) tablet (Junel FE 04/28 (28)) hydrocodone 7.5 mg-acetaminophen 1 tablet PO Q6H PRN pain #20 tabs 10/31/22 Rx 325 mg tablet ondansetron HCl 4 mg tablet 4 mg PO Q8H PRN nausea and 10/31/22 Rx vomiting #20 tabs Laboratory Tests 10/30/22 08:09 WBC 6.9 K/mm3 (4.5-10.0) RBC 4.73 M/mm3 (4.2-5.4) Hgb 11.9 L g/dL (12.0-15.0) Hct 37.1 % (37.0-47.0) MCV 78.4 L fl (80-100) MCH 25.2 L pg (26-34) MCHC 32.1 g/dl (32-36) RDW 16.7 H % (11.5-14.5) Plt Count 296 k/mm3 (150-375) MPV 10.1 fl (7.4-10.4) Immature Gran % (Auto) 0.3 % (0-0.5) Neut % (Auto) 70.5 % (45.5-73.1) Lymph % (Auto) 22.4 % (18.3-44.2) [place] % (Auto) 5.7 % (2.6-8.5) Eos % (Auto) 1.0 % (0-4.4) Baso % (Auto) 0.1 L % (0.2-1.2) Lymph # (Auto) 1.54 K/mm3 (0.9-3.2) [place] # (Auto) 0.4 K/mm3 (0.1-0.6) Eos # (Auto) 0.1 K/mm3 (0-0.3) Baso # (Auto) 0.0 K/mm3 (0.0-0.1) Abs Immat Gran (auto) 0.02 K/mm3 (0.00-0.031) Absolute Neuts (auto) 4.9 K/mm3 (1.3-6.7) Absolute Nucleated RBC 0.0 K/mm3 (0.0-0.012) Nucleated RBC % 0.0 % (0.0-0.2) Sodium 136 L mmol/L (137-145) Potassium 3.7 mmol/L (3.4-5.0) Chloride 101 mmol/L (98-107) Carbon Dioxide 26 mmol/L (22-30) Anion Gap 9 mmol/L (8-16) BUN 7 mg/dL (7-17) Creatinine 0.90 mg/dL (0.7-1.0) Estim Creat Clear Calc 120 ml/min Estimated GFR > 60 (59 - ) Glucose 68 mg/dL (65-110) Calcium 9.1 mg/dL (8.4-10.2) Total Bilirubin 3.0 H mg/dL (0.2-1.3) AST 55 H U/L (14-36) ALT 70 H U/L (6-35) Alkaline Phosphatase 91 U/L (38-126) Total Protein 8.0 g/dL (6.3-8.2) Albumin 4.5 g/dL (3.5-5.1) Patient hx anesthesia problems: none Family hx anesthesia problems: none Results Review: All pre-operative results and documents have been reviewed as part of the pre-operative evaluation. [facility] Past Medical History Medical History ADHD Anxiety Depression Eczema History of transfusion As an . Surgical History Surgical History No significant past surgical history Family History Family History Grandparent Breast cancer Grandparent Myocardial infarction due to acute myocardial infarction Other Diabetes mellitus
[2022-10-30] MEDS: BUPIVACAINE/EPINEPHRINE 0.5% 10 ML VIAL 30 ML INFILTRATE (16:13)
[2022-10-30] MEDS: KETOROLAC 30 MG/ML VIAL (*BKC) IV PUSH (16:40)
--- NOTE | 2022-10-30 16:42 | W.PM.PROC2 ---
Procedure Note - Detailed Date of Procedure 10/30/22 Pre-op Diagnosis acute cholecystitis, cholelithiasis Post-op Diagnosis Same Procedure Performed Laparoscopic cholecystectomy Surgeon Roseanna Lobato MD Anesthesia General Indications 22-year-old female presented to the emergency department complaining of severe upper abdominal pain. Workup including imaging, was significant for acute cholecystitis, cholelithiasis. Of note, the patient did had been elevated bilirubin, however her MRCP was subsequently negative. Findings acute cholecystitis with cholelithiasis Description of Procedure The patient was taken to the operating room placed in the supine position. After adequate induction of general anesthesia, the patient was prepped and draped in normal sterile fashion. A time-out was then performed to verify the patient's identity as well as the procedure being performed. I then made a 5 mm incision in the infraumbilical region. Through this, a Veress needle was placed into the peritoneal cavity and CO2 gas was then insufflated. After adequate pneumoperitoneum was achieved, the Veress needle was removed and a 5 mm optiview trocar was placed through this incision under direct visualization. I then placed the laparoscope through this trocar site and under direct visualization placed a further 12 mm subxiphoid port as well as 2 additional 5 mm ports in the right upper abdomen. The gallbladder was then identified and was noted to be moderately inflamed, distended, and full of gallstones. I was able to place a grasper at the dome of the gallbladder and this was retracted anterior and cephalad up over the liver. A 2nd retractor was then placed at the infundibulum and retracted laterally, this allowed visualization of the triangle of [place]ot. Of note, there was a large stone impacted at the neck of the gallbladder. I then was able to visualize the cystic duct in its entirety from its proximal insertion into the gallbladder, to its distal junction with the common hepatic/common bile duct junction. At this point, I carefully skeletonized the proximal cystic duct with the [place] dissector. I then clipped and transected the proximal cystic duct. Next I visualized the cystic artery. Again the artery was skeletonized, clipped, and transected. I then used the Bovie cautery to take down the peritoneal attachments of the gallbladder off the liver bed. This was somewhat difficult given the amount of inflammation in the posterior space. Once the gallbladder specimen was completely detached, an endo-pouch was placed through the 12 mm port site. I then placed the gallbladder specimen into the Endo pouch and removed the endo-pouch from the 12 mm port site. The specimen will now be sent to pathology for further review. I then copiously irrigated the right upper quadrant. Hemostasis was noted in the liver bed, the clips were noted to be in good position on both the cystic duct stump and the cystic artery stump. No other pathology was noted in the right upper quadrant. I then moved the laparoscope to the subxiphoid port. No iatrogenic injury or other pathology was noted in the lower abdomen. I then closed the 12 mm trocar site under direct visualization using the Dorian cone and 0 Vicryl suture. At this point, the abdomen was desufflated and all ports removed. All port sites were then closed with 4.O Monocryl subcuticular sutures. Dermabond was placed on each incision. The patient tolerated the procedure well, was extubated in the operating room postoperative and will be transferred to the recovery room in stable condition. Estimated Blood Loss 5 Drains No Packing No Pathology Yes Complications No immediate complications Condition Stable Disposition PACU [facility] Billing Surgery - Charge Forward: Surgery Billing
[2022-10-30] MEDS: LACTATED RINGERS 1,000 ML 30 ML IV CONT (17:03)
[2022-10-30] MEDS: fentaNYL CITRATE INJ (*CRX) 100 MCG/2 ML VIAL 25 MCG IV PUSH ×4 (17:09→17:35)
[2022-10-30] MEDS: ONDANSETRON INJ 4 MG/2 ML VIAL IV PUSH (17:09)
[2022-10-30] MEDS: LACTATED RINGERS 1,000 ML 75 ML IV CONT (18:09)
[2022-10-30] MEDS: HYDROcodone/acetaminophen (*CRX) 5-325 MG TABLET 1 TAB PO (18:09)
--- NOTE | 2022-10-30 21:00 | PC.NURSE ---
Educated her on importance of early ambulation, she walked about 10 minutes with no complaints.
[2022-10-31 00:05] VITALS: BP 114/61; PULSE 69; RESP 16; TEMP 36.6; O2SAT 96
[2022-10-31] MEDS: oxyCODONE HCL (*CRX) 5 MG TAB IR PO ×3 (03:02→12:29)
[2022-10-31 06:27] LABS: Basophils Percent Auto 0.1 % (0.2-1.2); Eosinophils Percent Auto 0.1 % (0-4.4); Hematocrit 37.9 % (37.0-47.0); Hemoglobin 12.2 g/dL (12.0-15.0); Immature Granulocyte Absolute 0.03 K/mm3 (0.00-0.031); Immature Granulocyte Percent A 0.3 % (0-0.5); Lymphocytes Absolute Auto 1.31 K/mm3 (0.9-3.2); Lymphocytes Percent Auto 12.1 % (18.3-44.2); Mean Corpuscular HGB Conc 32.2 g/dl (32-36); Mean Corpuscular Hemoglobin 25.1 pg (26-34); Mean Corpuscular Volume 77.8 fl (80-100); Mean Platelet Volume 10.3 fl (7.4-10.4); Monocytes Absolute Auto 0.6 K/mm3 (0.1-0.6); Monocytes Percent Auto 5.5 % (2.6-8.5); Neutrophils Absolute Auto 8.9 K/mm3 (1.3-6.7); Neutrophils Percent Auto 81.9 % (45.5-73.1); Platelet Count Result 364 k/mm3 (150-375); Red Blood Count 4.87 M/mm3 (4.2-5.4); Red Cell Distribution Width 16.6 % (11.5-14.5); White Blood Count 10.8 K/mm3 (4.5-10.0)
[2022-10-31 06:34] LABS: Alanine Aminotransferase 70 U/L (6-35); Albumin Level 4.4 g/dL (3.5-5.1); Alkaline Phosphatase 77 U/L (38-126); Anion Gap 10 mmol/L (8-16); Aspartate Amino Transferase 53 U/L (14-36); Bilirubin,Total 1.6 mg/dL (0.2-1.3); Blood Urea Nitrogen 6 mg/dL (7-17); Calcium 9.3 mg/dL (8.4-10.2); Carbon Dioxide 26 mmol/L (22-30); Chloride 102 mmol/L (98-107); Estimated CRCL calculation 151 ml/min; Estimated Glomerular Filt Rate > 60; Glucose 110 mg/dL (65-110); Potassium 4.3 mmol/L (3.4-5.0); Sodium 138 mmol/L (137-145)
--- NOTE | 2022-10-31 07:02 | PC.NURSE ---
Up this morning to ambulate the halls.
[2022-10-31] MEDS: PANTOPRAZOLE 40 MG TABLET PO (07:43)
[2022-10-31] MEDS: ESCITALOPRAM OXALATE 5 MG TABLET PO (07:43)
[2022-10-31 08:00] VITALS: BP 131/66; PULSE 57; RESP 16; TEMP 36.4; O2SAT 100
--- NOTE | 2022-10-31 08:34 | WPDANESPN ---
Anes - Prog Note Post-Op Date/Time: 10/31/22 08:34 Cardiovascular status: normal Respiratory status: normal Airway patency: baseline Mental status: baseline Post-Op hydration status: normal Vital Signs: Last Vital Signs Temp 36.4 C 10/31/22 08:00 Pulse 57 L 10/31/22 08:00 Resp 16 10/31/22 08:00 BP 131/66 10/31/22 08:00 Pulse Ox 100 10/31/22 08:00 O2 Del Method Room Air 10/30/22 20:00 O2 Flow Rate 10 10/30/22 16:49 Pain Score (VAS): 5 I/O: Intake & Output 10/30/22 10/31/22 10/31/22 23:59 07:59 15:59 Intake Total 100 350 Output Total 1000 1000 Balance -900 -650 Laboratory Tests 10/31/22 05:57 10/31/22 05:57 10/30/22 10/31/22 08:09 05:57 WBC 10.8 H RBC 4.87 Hgb 12.2 Hct 37.9 MCV 77.8 L MCH 25.1 L MCHC 32.2 RDW 16.6 H Plt Count 364 MPV 10.3 Immature Gran % (Auto) 0.3 Neut % (Auto) 81.9 H Lymph % (Auto) 12.1 L [place] % (Auto) 5.5 Eos % (Auto) 0.1 Baso % (Auto) 0.1 L Lymph # (Auto) 1.31 [place] # (Auto) 0.6 Eos # (Auto) 0.0 Baso # (Auto) 0.0 Abs Immat Gran (auto) 0.03 Absolute Neuts (auto) 8.9 H Absolute Nucleated RBC 0.0 Nucleated RBC % 0.0 Sodium 136 L 138 Potassium 3.7 4.3 Chloride 101 102 Carbon Dioxide 26 26 Anion Gap 9 10 BUN 7 6 L Creatinine 0.90 0.70 Estim Creat Clear Calc 120 151 Estimated GFR > 60 > 60 Glucose 68 110 Calcium 9.1 9.3 Total Bilirubin 3.0 H 1.6 H AST 55 H 53 H ALT 70 H 70 H Alkaline Phosphatase 91 77 Total Protein 8.0 8.0 Albumin 4.5 4.4 Post-procedural complaints: none Patient Feedback: Patient satisfied with anesthetic care.
--- NOTE | 2022-10-31 09:21 | PM.DS ---
DS: Admitting Diagnosis Discharge Date 10/31/2022 Admitting Diagnosis acute cholecystitis, cholelithiasis DS: Discharge Diagnosis Discharge Diagnosis (1) Acute cholecystitis due to biliary calculus: Code(s): K80.00 - Calculus of gallbladder with acute cholecystitis without obstruction Status: Acute Assessment and Plan: doing well, cont routine postop care, home c po analgesia, f/u 2 wks DS: Summary Hospital Course Reason for hospitalization: acute cholecystitis, cholelithiasis Hospital Course: The patient is a 22 old female presenting to the emergency department complaining severe upper abdominal pain. Workup in the emergency department, including imaging, was significant for acute cholecystitis, cholelithiasis. Patient was noted to have elevated liver enzymes and subsequent MRCP showed no biliary obstruction. The patient was admitted to the surgical service and started on IV antibiotics. Upon evaluation, it was noted the patient would need emergent cholecystectomy. The patient was taken to the operating room and emergent laparoscopic cholecystectomy was performed, please see full operative report for details of that procedure. Postoperatively, the patient did well and was transferred back to the surgical floor. Her diet was slowly advanced and she was tolerating a low-fat diet the following day. Her pain was well controlled with p.o. analgesia. The patient was up and ambulating without difficulty. She will be discharged at this time with p.o. analgesia and follow-up in 2 weeks. Status at Discharge Functional status at discharge: independent ambulation Overall status at discharge: patient is progressing back to baseline Time Spent with Patient Time attestation: Total time spent providing and/or coordinating discharge services: Time spent: Less than 30 minutes Exam Const: General: cooperative, comfortable and no acute distress Resp: Auscultation: clear to auscultation bilaterally Cardio: Rate: regular rate Rhythm: regular rhythm GI: Inspection: normal to inspection, distended and incision GI Palp: Yes abdominal tenderness, Yes Soft to palpation, Yes Tenderness to palpation present (GI), No Guarding due to palpation present (GI) and No Rigid due to palpation DS: Data Data Completed and Pending Pending studies at discharge: Pending at discharge 10/30/22 16:02 Surgical [PTH] Routine Labs on day of discharge: Labs from last 24 hours 10/31/22 05:57 WBC 10.8 H RBC 4.87 Hgb 12.2 Hct 37.9 MCV 77.8 L MCH 25.1 L MCHC 32.2 RDW 16.6 H Plt Count 364 MPV 10.3 Immature Gran % (Auto) 0.3 Neut % (Auto) 81.9 H Lymph % (Auto) 12.1 L [place] % (Auto) 5.5 Eos % (Auto) 0.1 Baso % (Auto) 0.1 L Lymph # (Auto) 1.31 [place] # (Auto) 0.6 Eos # (Auto) 0.0 Baso # (Auto) 0.0 Abs Immat Gran (auto) 0.03 Absolute Neuts (auto) 8.9 H Absolute Nucleated RBC 0.0 Nucleated RBC % 0.0 Sodium 138 Potassium 4.3 Chloride 102 Carbon Dioxide 26 Anion Gap 10 BUN 6 L Creatinine 0.70 Estim Creat Clear Calc 151 Estimated GFR > 60 Glucose 110 Calcium 9.3 Total Bilirubin 1.6 H AST 53 H ALT 70 H Alkaline Phosphatase 77 Total Protein 8.0 Albumin 4.4 Preliminary micro results at discharge 10/27/22 11:51 Blood Culture - Preliminary Blood 10/27/22 11:51 Blood Culture - Preliminary Blood Discharge Plan Discharge Attending physician on discharge: Sanjay Porras Consulting providers: Diamond Pena; Megha Ludwig Discharging Clinician: Roseanna Lobato Anticipated Discharge Date/Time: 10/31/22 16:00 Patient Disposition: Home, Self-Care Activity: other - see discharge instructions Diet: other - see discharge instructions Wound Care Instructions: other - see discharge instructions Discharge Instructions: DISCHARGE INSTRUCTION SHEET FOR HERNIA, GALLBLADDER AND APPENDIX SURGERIES DR. LOBATO PATIENT TO TAKE HOME 1. August shower
--- NOTE | 2022-10-31 10:40 | PM.IMPN ---
Progress Note: A&P Assessment and Plan (1) Acute cholecystitis due to biliary calculus: Code(s): K80.00 - Calculus of gallbladder with acute cholecystitis without obstruction Status: Acute Assessment and Plan: The patient presented to the emergency department for evaluation of abdominal pain as detailed in HPI. Labs, imaging, EKG, and all reports were personally reviewed. She was found to have acute cholecystitis and started on Zosyn. Cholecystectomy 10/30/[address] Porras. (2) Depression: Code(s): F32.A - Depression, unspecified Status: Acute Assessment and Plan: During the admission process she answered yes to a screening tool used to evaluate suicide risk; more specifically she reported that she had in the past thought about suicide. She has struggled with depression and anxiety for several months and she has been seeing a psychologist and was started on antidepressants which have made a big difference. She is not currently suicidal, has not thought about suicide for several months, has no plans for suicide, and she has no history of suicide attempt. She is at low risk and in fact is doing much better than she was several months ago. I do not feel that crisis is evaluation is needed at this time. Continue escitalopram and outpatient therapy. Resume home medications when okay with primary service. (3) Anxiety: Code(s): F41.9 - Anxiety disorder, unspecified Status: Acute Assessment and Plan: See above (4) Encounter for screening examination for other mental health and behavioral disorders: Code(s): Z13.39 - Encounter for screening examination for other mental health and behavioral disorders Status: Acute Assessment and Plan: see above Plan Thank you for allowing us to participate in this patient's care. Please do not hesitate to contact us with any questions. Subjective Date/time seen: 10/31/22 10:40 Interval history: Patient doing well postoperatively. Mild abdominal discomfort. No nausea. Okay to discharge per Hospitalist team. Exam Narrative: GENERAL: Comfortable, no acute distress, obese HENMT: moist mucous membranes EYES: EOM intact b/l NECK: no lymphadenopathy RESPIRATORY: clear to auscultation CARDIO: RRR GI: soft, nontender, bowel sounds present, abdominal incisions well healing without drainage or induration SKIN: no rashes EXTREMITIES: no edema, redness or tenderness Objective Data Vital Signs Vital Signs: Vital Signs - 24 hr 10/30/22 14:10 10/30/22 16:49 10/30/22 17:00 Temperature 98.5 F 98.1 F Pulse Rate 673 H 90 90 Respiratory Rate 16 18 20 Blood Pressure 149/97 H 132/64 124/61 Pulse Oximetry 100 98 99 Oxygen Delivery Room Air Simple Face Mask Room Air Oxygen Flow Rate 10 10/30/22 17:15 10/30/22 17:30 10/30/22 17:45 Temperature Pulse Rate 72 73 75 Respiratory Rate 20 20 20 Blood Pressure 125/68 135/69 127/65 Pulse Oximetry 99 99 99 Oxygen Delivery Room Air Room Air Room Air Oxygen Flow Rate 10/30/22 18:00 10/30/22 18:15 10/30/22 16:45 Temperature 97.4 F L 97.6 F 97.8 F Pulse Rate 68 85 73 Respiratory Rate 18 18 16 Blood Pressure 135/70 135/74 133/68 Pulse Oximetry 97 98 96 Oxygen Delivery Oxygen Flow Rate 10/30/22 18:45 10/30/22 20:00 10/30/22 20:00 Temperature 97.6 F 97.5 F L Pulse Rate 73 83 Respiratory Rate 16 12 Blood Pressure 133/68 138/70 Pulse Oximetry 96 99 Oxygen Delivery Room Air Oxygen Flow Rate 10/31/22 00:05 10/31/22 08:00 10/31/22 08:00 Temperature 97.8 F 97.6 F Pulse Rate 69 57 L Respiratory Rate 16 16 Blood Pressure 114/61 131/66 Pulse Oximetry 96 100 100 Oxygen Delivery Room Air Oxygen Flow Rate Intake/Output Intake/Output: Intake & Output 10/28/22 10/29/22 10/30/22 10/31/22 23:59 23:59 23:59 23:59 Intake Total 3360 1100 2250 590 Output Total 1600 2600 2000 1000 Balance 1760 -1500 250 -410 Meds/Resu
--- NOTE | 2022-10-31 11:24 | PCNFU ---
Nutrition Follow-Up Complete: Inadequate energy intake related to NPO status as evidenced by diet order x 4 days. Goal:Meet estimated needs Pt is meeting goal. continue with same goal. Pt current nutrition is Regular. Nutrition recommendation: continue with current plan of care Last recorded weight is 128.2 kg. Bowel Motility: no BM recorded at this time Labs Reviewed: BUN:6 Meds Noted: LR, zofran, protonix Skin: WNL Additional Notes: Pt started on a regular diet today, tolerated well. Plans to d/c today. Monitor intake, tolerance, wt, labs. Follow up in 7 days
[2022-10-31 11:43] VITALS: BP 124/54; PULSE 64; RESP 16; TEMP 36.7; O2SAT 100
[2022-10-31] MEDS: ACETAMINOPHEN 500 MG TABLET 1000 MG PO (14:48)
== END 2022-10-31 16:34 | disposition home or self-care (01) | DRG 418 ==
LOC: ANHED 08:04 → ANH3MEDSUR 12:40
PROVIDERS: Admitting Provider Surgery; Emergency Provider Preventive Medicine Aerospace Medicine; PCP Nurse Practitioner; Visit Provider Surgery
PROC: 0FT44ZZ Resection of Gallbladder, Percutaneous Endoscopic Approach (ICD-10-PCS; CPT 47562; principal; 2022-10-30 15:30)
DX: K80.00 Calculus of gallbladder with acute cholecystitis without obstruction (principal); Z68.42 Body mass index [BMI] 45.0-49.9, adult; F90.9 Attention-deficit hyperactivity disorder, unspecified type; L30.9 Dermatitis, unspecified; F41.9 Anxiety disorder, unspecified; F32.A Depression, unspecified; E66.01 Morbid (severe) obesity due to excess calories
CPT/HCPCS: 36415; 74177; 74183; 76376; 76705; 80053; 81003; 81025; 83690; 84702; 85025; 86850; 86900; 86901; 87040; 87077; 88304; 96361; 96365; 96366; 96375; 96376; 99285; A9270; A9577; C9113; G0378; J1100; J1885; J2250; J2270; J2405; J2543; J2704; J3010; J7030; J7120; Q9967

== ENCOUNTER 2022-11-28 15:14 | Outpatient (CLI) | payer OTHER, SELFPAY ==
--- NOTE | ~2022-11-28 | CT_ITS ---
EXAMINATION: CT abdomen pelvis wo con DATE: 11/28/2022 15:31 INDICATION: Right upper quadrant pain TECHNIQUE: Computed tomography (CT) of the abdomen and pelvis was performed without intravenous contr ast. The dose-length product (DLP) was 1618.19 mGy-cm. Automated exposure control and iterative recon struction technique were employed. COMPARISON: 10/27/2022 FINDINGS: The lung bases are clear. The heart size is normal. There are changes of interval cholecyst ectomy. The liver, spleen, pancreas, and adrenal glands are normal. The kidneys are unremarkable. No pathologically enlarged abdominal or pelvic lymph nodes are identified. No free intraperitoneal gas o r evidence of bowel obstruction. The appendix is normal. IMPRESSION: 1. Changes of interval cholecystectomy without acute findings. Reviewed, dictated and finalized at location A.
== END 2022-11-28 15:15 | disposition home or self-care (01) ==
PROVIDERS: PCP Family Medicine; Visit Provider Surgery
DX: R10.11 Right upper quadrant pain (principal); Z90.49 Acquired absence of other specified parts of digestive tract
CPT/HCPCS: 74176

== ENCOUNTER 2023-02-01 20:18 | Emergency (ER) | payer OTHER, SELFPAY ==
--- NOTE | ~2023-02-01 | CT_ITS ---
EXAMINATION: CTA chest PE protocol DATE: 02/01/2023 22:44 INDICATION: Chest pain TECHNIQUE: Computed tomography angiography (CTA) of the chest was performed with 100 mL Omnipaque-350 intravenous contrast timed to evaluate the pulmonary arteries. Coronal maximum intensity projection 3D-reconstructions were created by the technologist. The dose-length product (DLP) was 1045.42 mGy-cm . Automated exposure control and iterative reconstruction technique were employed. COMPARISON: None. FINDINGS: The pulmonary arteries are moderately well-opacified. No pulmonary embolus is identified. N o pleural effusion or pneumothorax. The lungs are free of acute opacities. There is mild atelectasis. No pathologically enlarged thoracic lymph nodes are identified. The heart size is normal. Triangular soft tissue density in the anterior mediastinum likely represents residual thymus. Changes of cholec ystectomy are noted. IMPRESSION: 1. No pulmonary embolism or acute cardiopulmonary abnormality. Reviewed, dictated and finalized at location F.
--- NOTE | ~2023-02-01 | XR_ITS ---
EXAMINATION: XR chest 2V DATE: 02/01/2023 20:48 INDICATION: Chest pain TECHNIQUE: Frontal and lateral views of the chest are obtained COMPARISON: 08/17/2022 FINDINGS: The lungs are free of acute opacities. No pleural effusion or pneumothorax. The cardiomedia stinal silhouette is normal. The visualized bones and soft tissues are unremarkable. Cholecystectomy clips are noted. IMPRESSION: 1. No acute cardiopulmonary abnormality. Reviewed, dictated and finalized at location F.
[2023-02-01 20:21] VITALS: PULSE 86; RESP 15; TEMP 36.7; O2SAT 100
[2023-02-01 20:26] VITALS: PULSE 93
[2023-02-01 20:27] VITALS: BP 129/78
--- NOTE | 2023-02-01 20:40 | ECG_ITS ---
Measurements Intervals [place] Rate: 93 P: 22 VA: 137 QRS: 79 QRSD: 94 T: 29 QT: 335 QTc: 418 Interpretive Statements SINUS RHYTHM NORMAL ELECTROCARDIOGRAM NO PREVIOUS ECG AVAILABLE FOR COMPARISON Electronically Signed On 02-02-2023 7:32:16 CDT by Sean Del Rio M.D.
[2023-02-01 20:50] LABS: Basophils Percent Auto 0.2 % (0.2-1.2); Eosinophils Absolute Auto 0.1 K/mm3 (0-0.3); Eosinophils Percent Auto 1.1 % (0-4.4); Hematocrit 36.9 % (37.0-47.0); Immature Granulocyte Absolute 0.04 K/mm3 (0.00-0.031); Immature Granulocyte Percent A 0.4 % (0-0.5); Lymphocytes Absolute Auto 3.87 K/mm3 (0.9-3.2); Mean Corpuscular HGB Conc 32.5 g/dl (32-36); Mean Corpuscular Hemoglobin 25.3 pg (26-34); Mean Corpuscular Volume 77.7 fl (80-100); Mean Platelet Volume 9.5 fl (7.4-10.4); Monocytes Absolute Auto 0.7 K/mm3 (0.1-0.6); Monocytes Percent Auto 6.2 % (2.6-8.5); Neutrophils Percent Auto 56.1 % (45.5-73.1); Platelet Count Result 364 k/mm3 (150-375); Red Blood Count 4.75 M/mm3 (4.2-5.4); Red Cell Distribution Width 17.2 % (11.5-14.5); White Blood Count 10.7 K/mm3 (4.5-10.0)
[2023-02-01 21:00] LABS: Alanine Aminotransferase 28 U/L (6-35); Albumin Level 4.6 g/dL (3.5-5.1); Alkaline Phosphatase 81 U/L (38-126); Anion Gap 9 mmol/L (8-16); Aspartate Amino Transferase 29 U/L (14-36); Blood Urea Nitrogen 14 mg/dL (7-17); Calcium 9.3 mg/dL (8.4-10.2); Carbon Dioxide 25 mmol/L (22-30); Chloride 106 mmol/L (98-107); Estimated CRCL calculation 117 ml/min; Estimated Glomerular Filt Rate > 60; Glucose 95 mg/dL (65-110); Lipase 137 U/L (23-300); Potassium 3.7 mmol/L (3.4-5.0); Sodium 140 mmol/L (137-145)
[2023-02-01 21:01] LABS: Prothrombin Time 13.8 Seconds (11.1-14.7)
[2023-02-01 21:02] LABS: Partial Thromboplastin Time 29.9 SECONDS (22.3-36.8)
[2023-02-01 21:03] VITALS: O2SAT 100
[2023-02-01] MEDS: ASPIRIN 81 MG CHEWABLE TABLET 324 MG PO (21:05)
--- NOTE | 2023-02-01 21:11 | ED.CHESTPAIN ---
HPI - Chest Pain General Chief Complaint: Chest Pain Stated Complaint: chest pain Time Seen by Provider: 02/01/23 21:01 History of Present Illness HPI narrative: 22-year-old female reports for evaluation for intermittent left-sided chest pain x2 months. Patient states her symptoms started after she had a cholecystectomy 2 months ago but have increasingly gotten worse. Today she states that she was in an elevator and began having increased difficulty breathing which prompted her to come to the ED today. She denies lower extremity edema or calf pain, history of VTE, aggravating or alleviating factors, abdominal pain. She does report associated nausea and states that time it feels as though the chest pain is in her back. She denies injury or trauma, breast changes or pain, cough or fever. She does endorse a history of anxiety and states she does feel anxious currently. Reports increased stressors at home which she believes may have attributed to her worsening symptoms. Related Data Allergies Allergy/AdvReac Type Severity Reaction Status Date / Time No Known Allergies Allergy Verified 01/05/23 09:26 Review of Systems Review of Systems: CONSTITUTIONAL: Denies fever, chills EYES: Denies visual changes, redness, or discharge. ENT: Denies rhinorrhea, congestion, sore throat, or otalgia. CARDIOVASCULAR: See HPI RESPIRATORY: See HPI GASTROINTESTINAL: Denies abdominal pain, nausea, vomiting, or diarrhea. GENITOURINARY: Denies dysuria or hematuria. SKIN: Denies rash or itching. MUSCULOSKELETAL: Denies back pain, joint pain, or myalgia. NEUROLOGIC: Denies headache, numbness, dizziness, or weakness. PSYCHIATRIC: Denies anxiety or depression. [facility] Past Medical History Medical History ADHD Anxiety Depression Eczema History of transfusion As an infant. Surgical History Surgical History S/P laparoscopic cholecystectomy 10/30/22 Family History Family History Grandparent Breast cancer Grandparent Myocardial infarction due to acute myocardial infarction Other Diabetes mellitus Autism Social History Social History Social History: Surrogate medical decision maker: Nasrin Powell, ishaan mother. Code status: Full code. Smoking status: Never smoker Second hand tobacco smoke exposure: Yes Alcohol intake: never Substance use: current Substance use type: does not use and marijuana Other substance usage details: substance use only when with boyfriend when using THC vape, very rarely Lack of Transportation: No Lack of Food: Never True Current Housing: I Have Housing Concerned About Future Housing: No Difficulty Paying Gas/Electric Bills: No Difficulty Paying for Meds: No Currently Unemployed: No Education: Trade/Vocational Certificate Difficulty w/ Childcare or Family Care: No Living arrangements: with family Occupation/Education: occupation 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 Gender identity (if verbalized by the patient): Female Spiritual care concerns: No Agree to blood products: Yes Exam Narrative: GENERAL: Well-appearing, in no acute distress. HEAD: Normocephalic EYES: PERRLA ENT: Nares clear. Mucous membranes moist. Oropharynx without tonsillar hypertrophy exudate or other lesions. NECK: Supple. CHEST: No respiratory distress. Clear to auscultation, no adventitious breath sounds. Speaking in full sentences, no labored breathing. Tenderness to the left sternal border without overlying skin changes. No masses to breast, no nipple discharge, no overlying skin changes. HEART: Regular rate and rhythm. No murmur heard. Normal peripheral pulses. ABDOMEN: Soft, nontender, normal active bowel sounds. No
[2023-02-01 21:12] LABS: Troponin I < 0.012 ng/mL (0.000-0.034)
[2023-02-01] MEDS: LORazepam INJ (*CRX) 2 MG/ML VIAL 1 MG IV PUSH (21:15)
[2023-02-01] MEDS: SODIUM CHLORIDE 0.9% IV 1,000 ML 999 ML IV CONT (21:15)
[2023-02-01 21:39] LABS: NT Pro B Type Natriuretic Pept < 20 pg/mL (19.9-100)
[2023-02-01 21:58] LABS: Beta HCG Quantitative < 2.39 mIU/ML
[2023-02-01 22:24] VITALS: BP 104/69; PULSE 89; RESP 15; O2SAT 97
--- NOTE | 2023-02-01 22:24 | PC.NURSE ---
Pt to CT scan via stretcher at this time.
--- NOTE | 2023-02-01 23:05 | PC.NURSE ---
Report from MARK Camara. Awaiting CT results.
[2023-02-02 00:21] LABS: Troponin I < 0.012 ng/mL (0.000-0.034)
[2023-02-02] MEDS: FAMOTIDINE 20 MG/2 ML VIAL IV PUSH (00:50)
[2023-02-02] MEDS: MORPHINE SULFATE (*CRX) 4 MG/ML INJ IV PUSH (00:50)
[2023-02-02 01:41] VITALS: BP 112/59; PULSE 87; RESP 22; O2SAT 97
== END 2023-02-02 01:49 | disposition home or self-care (01) ==
PROVIDERS: Student in an Organized Health Care Education/Training Program; Emergency Provider Physician Assistant; PCP Family Medicine
DX: R07.89 Other chest pain (principal); F41.9 Anxiety disorder, unspecified; F32.A Depression, unspecified; F90.9 Attention-deficit hyperactivity disorder, unspecified type; Z90.49 Acquired absence of other specified parts of digestive tract
CPT/HCPCS: 36415; 71046; 71275; 80053; 83690; 83880; 84484; 84702; 85025; 85610; 85730; 93005; 96361; 96374; 96375; 99284; A9270; J2060; J2270; J7030; Q9967

== ENCOUNTER 2023-10-30 18:43 | Emergency (ER) | payer OTHER, SELFPAY ==
--- NOTE | ~2023-10-30 | XR_ITS ---
EXAM: XR knee LT min 4V DATE: 10/30/2023 19:41 HISTORY: injury; pt fell this evening . COMPARISON: None available. FINDINGS: Normal mineralization. No fracture or dislocation. No lytic or blastic lesion. Joint space s are maintained. No erosion or periosteal change. Soft tissues within normal limits. IMPRESSION: No acute osseous finding in the left knee. Reviewed, dictated and finalized at location K.
[2023-10-30 18:51] VITALS: BP 140/85; PULSE 90; RESP 18; TEMP 36.5; O2SAT 100
--- NOTE | 2023-10-30 19:03 | PC.NURSE ---
ice pack applied out in triage.
--- NOTE | 2023-10-30 21:15 | ED.LOWEXIN ---
HPI - Extremity Injury (Lower) General Chief Complaint: Extremity Injury, Lower Stated Complaint: left knee injury Time Seen by Provider: 10/30/23 20:55 History of Present Illness HPI Narrative: 23-year-old female presenting with left knee pain. Patient slipped on a puddle and fell straight down onto her left knee. States that she heard a pop. She then fell backwards onto her butt. She did not strike her head or lose consciousness. 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 States that range of motion is limited secondary to pain. No numbness or weakness. No back pain. No further complaints. Related Data Allergies Allergy/AdvReac Type Severity Reaction Status Date / Time No Known Allergies Allergy Verified 04/18/23 15:28 Review of Systems Review of Systems: All systems reviewed & are unremarkable except as noted in HPI and below PMFSH Past Medical History Medical History ADHD Anxiety Depression Eczema History of transfusion As an infant. Surgical History Surgical History S/P laparoscopic cholecystectomy 10/30/22 Family History Family History Grandparent Breast cancer Grandparent Myocardial infarction due to acute myocardial infarction Other Diabetes mellitus Autism Social History Social History Social History: Surrogate medical decision maker: ishaan Wagner mother. Code status: Full code. Smoking status: Never smoker Second hand tobacco smoke exposure: Yes Alcohol intake: never Substance use: current Substance use type: does not use and marijuana Other substance usage details: substance use only when with boyfriend when using THC vape, very rarely Lack of Transportation: No Lack of Food: Never True Current Housing: I Have Housing Concerned About Future Housing: No Difficulty Paying Gas/Electric Bills: No Difficulty Paying for Meds: No Currently Unemployed: No Education: Trade/Vocational Certificate Difficulty w/ Childcare or Family Care: No Living arrangements: with family Occupation/Education: occupation 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 Gender identity (if verbalized by the patient): Female Spiritual care concerns: No Agree to blood products: Yes Exam Narrative: GENERAL: Well-appearing, no acute distress, pleasant and cooperative HEAD: Normocephalic, atraumatic. EYES: PERRLA and EOMI. ENT: Grossly unremarkable NECK: Supple. CHEST: No respiratory distress. HEART: Regular rate and rhythm EXTREMITIES: Left knee is diffusely tender, no significant edema appreciated, no erythema, range of motion is limited secondary to pain SKIN: Warm, dry, no rash. NEURO: No focal deficits. Alert and oriented x3. PSYCH: Normal mood and affect. Course Vital Signs Vital signs: Vital Signs Temperature 97.7 F 10/30/23 18:51 Pulse Rate 90 10/30/23 18:51 Respiratory Rate 18 10/30/23 18:51 Blood Pressure 140/85 10/30/23 18:51 Pulse Oximetry 100 10/30/23 18:51 Oxygen Delivery Room Air 10/30/23 18:51 Temperature 97.7 F 10/30/23 18:51 Pulse Rate 90 10/30/23 18:51 Respiratory Rate 18 10/30/23 18:51 Blood Pressure 140/85 10/30/23 18:51 Pulse Oximetry 100 10/30/23 18:51 Oxygen Delivery Room Air 10/30/23 18:51 MDM - Extremity Injury (Lower) MDM Narrative Medical decision making narrative: 23-year-old female presenting with left knee pain following a fall. Vitals stable. Exam remarkable for the above. X-ray reveals no acute osseous abnormalities. Advised Tylenol and ibuprofen for pain control. Crutches to remain nonweightbearing. Ortho PCP follow-
[2023-10-30] MEDS: ACETAMINOPHEN 500 MG TABLET 1000 MG PO (21:21)
[2023-10-30] MEDS: IBUPROFEN 400 MG TABLET 800 MG PO (21:22)
[2023-10-30 21:49] VITALS: BP 137/82; PULSE 87; RESP 18; TEMP 36.6; O2SAT 98
== END 2023-10-30 21:40 | disposition home or self-care (01) ==
PROVIDERS: Emergency Provider Emergency Medicine; PCP Family Medicine
DX: M23.92 Unspecified internal derangement of left knee (principal); F90.9 Attention-deficit hyperactivity disorder, unspecified type; F41.9 Anxiety disorder, unspecified; F32.A Depression, unspecified
CPT/HCPCS: 73564; 99283; A9270

== ENCOUNTER 2023-12-11 09:41 | Outpatient (CLI) | payer OTHER, SELFPAY ==
--- NOTE | ~2023-12-11 | MR_ITS ---
MRI of the left knee Clinical history: Contusion Technique: Coronal proton density and proton density-weighted images, sagittal proton-density and T2 fat-sat images, and axial proton-density fat-saturated images were acquired. Findings: Anterior and posterior cruciate ligaments are intact. Medial collateral ligament and the la teral collateral ligament complex are intact. Popliteus tendon is intact. Medial and lateral menisci are intact, without evidence of tear. Articular cartilage is well preserved throughout the knee. Bone marrow signals are unremarkable. Extensor mechanism is intact. No joint effusion or Chirinos's cyst. Impression: No significant abnormality. Reviewed, dictated and finalized at location . Impression: No significant abnormality.
== END 2023-12-11 09:42 | disposition home or self-care (01) ==
PROVIDERS: PCP Family Medicine; Visit Provider Orthopaedic Surgery
DX: S80.02XA Contusion of left knee, initial encounter (principal); T14.90XA Injury, unspecified, initial encounter
CPT/HCPCS: 73721